=== PATIENT | male | born 1995 | race Caucasian/White ===

== ENCOUNTER 2024-11-15 10:41 | Emergency (ER) | payer BC ==
[~2024-11-15] VITALS: Ht 182.9 cm; Wt 90.7 kg
[2024-11-15 10:44] VITALS: BP 143/69; TEMP 98.6
[2024-11-15 10:55] VITALS: O2SAT 97
[2024-11-15] MEDS ORDERED: FLUORESCEIN SODIUM OPHTH 1 EA STRIP ONE (11:05)
[2024-11-15] MEDS ORDERED: TETRAcaine 5 ML BOTTLE ONE (11:05)
[2024-11-15] MEDS ORDERED: ERYT3.5O9 RIGHTEYE (11:20)
[2024-11-15] MEDS: FLUORESCEIN SODIUM OPHTH 1 EA STRIP OP ONE (11:48)
[2024-11-15] MEDS: TETRACAINE HCL 0.5% OPHTALMIC 15 ML BOTTLE OP ONE (11:49)
== END 2024-11-15 11:52 | disposition home or self-care (01) ==
LOC: ER 10:56
DX: H57.89 Other specified disorders of eye and adnexa (principal); H57.8A1 Foreign body sensation, right eye; F17.200 Nicotine dependence, unspecified, uncomplicated; G40.909 Epilepsy, unspecified, not intractable, without status epilepticus; Z88.0 Allergy status to penicillin